=== PATIENT | male | born 1960 | race Caucasian/White ===

== ENCOUNTER 2017-01-29 08:19 | Emergency (ER) | payer BC, OTHER ==
[2017-01-29] MEDS ORDERED: Diphtheria,Pertussis(Acell),Tetanus Vaccine 0.5 ML SDV IM ONE (08:29)
[2017-01-29 08:30] VITALS: BP 149/99
[2017-01-29] MEDS ORDERED: Lidocaine 1% 50 ML MDV INJECT ONE (08:35)
--- NOTE | 2017-01-29 08:35 | EDM.PDOC ---
ED HPI GENERAL MEDICAL PROBLEM - General Chief Complaint: Upper Extremity Injury/Pain Stated Complaint: SMASHED MIDDLE FINGER Time Seen by Provider: 01/29/17 08:25 Source of Information: Reports: Patient History Limitations: Reports: No Limitations - History of Present Illness INITIAL COMMENTS - FREE TEXT/NARRATIVE: The patient was loading some wooden pallets on to his ranger and one of them smashed his left middle finger. The nail is nearly off. He his right handed. He is unsure of his tetanus status. He has no other injuries. Onset: Sudden Duration: Minutes: Location: Reports: Upper Extremity, Left (Middle finger) Quality: Reports: Sharp Severity: Moderate Improves with: Reports: None Worsens with: Reports: None Associated Symptoms: Reports: No Other Symptoms Left Middle Hand Pain Score (Numeric/FACES): 3 - Related Data Allergies Allergy/AdvReac Type Severity Reaction Status Date / Time No Known Allergies Allergy Verified 01/29/17 08:30 Home Meds: Home Meds Cephalexin [Keflex] 500 mg PO Q6HR #28 cap 01/29/17 [Rx] Review of Systems - Review of Systems Review Of Systems: See Below Constitutional: Reports: No Symptoms Eyes: Reports: No Symptoms Ears: Reports: No Symptoms Nose: Reports: No Symptoms Mouth/Throat: Reports: No Symptoms Respiratory: Reports: No Symptoms Cardiovascular: Reports: No Symptoms GI/Abdominal: Reports: No Symptoms Genitourinary: Reports: No Symptoms Musculoskeletal: Reports: Other (Left middle finger injury) ED EXAM, GENERAL - Physical Exam Exam: See Below Exam Limited By: No Limitations General Appearance: Alert, No Apparent Distress Ears: Normal External Exam Nose: Normal Inspection Head: Atraumatic, Normocephalic Neck: Normal Inspection Respiratory/Chest: No Respiratory Distress Extremities: Other (Left middle finger has a crush injury. The nail is nearly off. He has good capillary refill distally and good sensation.) Course - Vital Signs Last Recorded V/S: Last Vital Signs Temp 98.0 F 01/29/17 08:25 Pulse 71 01/29/17 08:25 Resp 13 01/29/17 08:25 BP 149/99 H 01/29/17 08:25 Pulse Ox 97 01/29/17 08:25 - Orders/Labs/Meds Orders: Active Orders 24 hr Category Date Time Status Vaccines to be Administered [RC] PER UNIT ROUTINE Care 01/29/17 08:29 Active Fingers Third Digit Lt F2 [CR] Stat Exams 01/29/17 08:28 Taken Meds: Medications Discontinued Medications Generic Name Dose Route Start Last Admin Trade Name Wes PRN Reason Stop Dose Admin Diphtheria/Tetanus/Acell Pertussis 0.5 ml 01/29/17 08:29 01/29/17 08:39 Adacel IM 01/29/17 08:30 0.5 ml .ONCE ONE Administration Lidocaine HCl 50 ml 01/29/17 08:35 01/29/17 08:49 Xylocaine 1% INJECT 01/29/17 08:36 50 ml ONETIME ONE Administration - Re-Assessments/Exams Free Text/Narrative Re-Assessment/Exam: 01/29/17 08:35 I will get an x-ray and update his tetanus. 01/29/17 09:17 I used 1% lidocaine to do a ring block on his finger and I removed the nail with a 15 blade scalpel after cleaning his finger. He tolerated the procedure well and there were no complications. My nurse dressed the wound and put a splint on it. On the x-ray there were a few bone chips. I will need to get him on some keflex because this is an open fracture. Departure - Departure Time of Disposition: 09:20 Disposition: Home, Self-Care 01 Condition: Good Clinical Impression: Crushing injury of distal finger Qualifiers: Encounter type: initial encounter Qualified Code(s): S67.10XA - Crushing injury of unspecified finger(s), initial encounter Nail avulsion, finger Qualifiers: Encounter type: initial encounter Qualified Code(s): S61.309A - Unspecified open wound of unspecified finger with damage to nail, initial encounter Open fracture of finger of left hand Qualifiers: Encounter type: sequela Finger: middle finger Phalanx: distal Fracture alignment: nondisplaced Qualified Code(s): S62.663S - Nondisplaced fracture of distal phalanx of left middle finger, sequela - Discharge Information Prescriptions: Cephalexin [Keflex] 500 mg PO Q6HR #28 cap Referrals: Ziyad Gardiner MD [Physician] - 1 Week Forms: ED Department Discharge Additional Instructions: Do not change the bandage for 48 hours. After that, soak your finger in warm soapy water and apply antibiotic ointment after. Apply a dressing and wear the splint to protect it. Take keflex 4 times per day for 7 days. Take tylenol or motrin for pain. Please return if you are worse and follow up with Dr Gardiner in 1 week. - My Orders Last 24 Hours: My Active Orders 01/29/17 08:28 Fingers Third Digit Lt F2 [CR] Stat 01/29/17 08:29 Vaccines to be Administered [RC] PER UNIT ROUTINE - Assessment/Plan Last 24 Hours: My Active Orders 01/29/17 08:28 Fingers Third Digit Lt F2 [CR] Stat 01/29/17 08:29 Vaccines to be Administered [RC] PER UNIT ROUTINE
--- NOTE | 2017-01-31 11:08 | CR ---
Left third finger: 4 views of the left third finger were obtained. Soft tissue injury is seen distally. Mild degenerative change is noted within the DIP joint of the second finger with mild joint space narrowing seen within the third finger involving the DIP joint. Joint space narrowing also noted within the second MCP joint. No acute fracture, dislocation or other bony abnormality is seen. Impression: 1. Soft tissue injury. 2. Degenerative change as described above. 3. No acute bony abnormality is identified. Diagnostic code #3
== END 2017-01-29 09:31 | disposition home or self-care (01) ==
LOC: JD.ED 08:19
DX: S62.663A Nondisplaced fracture of distal phalanx of left middle finger, initial encounter for closed fracture (principal); S61.303A Unspecified open wound of left middle finger with damage to nail, initial encounter; Z23 Encounter for immunization; W23.0XXA Caught, crushed, jammed, or pinched between moving objects, initial encounter; Y93.89 Activity, other specified
CPT/HCPCS: 11730; 73140-26-F2; 73140-F2; 90471; 90715; 99283; 99283-25

== ENCOUNTER 2019-08-23 20:00 | Emergency (ER) | payer OTHER ==
[2019-08-23 20:20] VITALS: BP 128/85; PULSE 72
[2019-08-23] MEDS ORDERED: Fluorescein 1 MG Ophth Strip EYERT ONE (21:36)
[2019-08-23] MEDS ORDERED: Proparacaine 0.5% Ophth Soln 15 ML Bottle EYERT ONE (21:37)
[2019-08-23] MEDS ORDERED: Erythromycin Base 0.5% Ophth Oint 1 GM Tube EYERT ONE (21:46)
--- NOTE | 2019-08-23 21:52 | EDM.PDOC ---
ED HPI GENERAL MEDICAL PROBLEM - General Chief Complaint: Eye Problems Stated Complaint: EYE PROBLEM Time Seen by Provider: 08/23/19 21:36 Source of Information: Reports: Patient History Limitations: Reports: No Limitations - History of Present Illness INITIAL COMMENTS - FREE TEXT/NARRATIVE: Patient is a 58-year-old male who presents with complaints of pain and watering to his right eye. States he has a sensation that there is a foreign body in the eye. Earlier he was working outside with grain. He thought he may have got some green into his right eye. He was not able to locate a foreign body, however, the eye continues to be painful with a sensation that he has a foreign body in it. Right Eye Pain Score (Numeric/FACES): 7 - Related Data Allergies Allergy/AdvReac Type Severity Reaction Status Date / Time No Known Allergies Allergy Verified 08/23/19 20:20 Home Meds: Home Meds . [No Known Home Meds] 08/23/19 [History] Past Medical History HEENT History: Reports: Impaired Vision Other HEENT History: wears glasses - Infectious Disease History Infectious Disease History: Reports: Chicken Pox, Mumps - Past Surgical History Neurological Surgical History: Reports: Lumbar Spine Social & Family History - Family History Family Medical History: Noncontributory - Tobacco Use Smoking Status *Q: Never Smoker - Caffeine Use Caffeine Use: Reports: Coffee, Soda - Recreational Drug Use Recreational Drug Use: No ED ROS GENERAL - Review of Systems Review Of Systems: Comprehensive ROS is negative, except as noted in HPI. ED EXAM GENERAL W FULL EYE - Physical Exam Exam: See Below Exam Limited By: No Limitations General Appearance: Alert, WD/WN, No Apparent Distress Eye Exam: Right Eye: Conjunctival Injection, Corneal Abrasion (2mm at to 2' oclock position over the iris. No foreign body present.), Bilateral Eye: PERRL Eyelids: Bilateral: Normal Appearance Conjunctiva & Sclera: Right: Injected Respiratory/Chest: No Respiratory Distress, Lungs Clear, Normal Breath Sounds, No Accessory Muscle Use, Chest Non-Tender Cardiovascular: Normal Peripheral Pulses, Regular Rate, Rhythm, No Edema, No Gallop, No JVD, No Murmur, No Rub Course - Vital Signs Last Recorded V/S: Last Vital Signs Temp 98.3 F 08/23/19 20:17 Pulse 72 08/23/19 20:17 Resp 18 08/23/19 20:17 BP 128/85 08/23/19 20:17 Pulse Ox 90 L 08/23/19 20:17 - Orders/Labs/Meds Meds: Medications Discontinued Medications Generic Name Dose Route Start Last Admin Trade Name Wes PRN Reason Stop Dose Admin Erythromycin 1 gm 08/23/19 21:46 08/23/19 22:04 Erythromycin 0.5% Ophth Oint EYERT 08/23/19 21:47 1 gm ONETIME ONE Administration Fluorescein Sodium 1 mg 08/23/19 21:36 08/23/19 22:05 Ful-Chloé EYERT 08/23/19 21:37 1 mg ONETIME ONE Administration Proparacaine HCl 1 ml 08/23/19 21:37 08/23/19 22:05 Proparacaine 0.5% Ophth Soln EYERT 08/23/19 21:38 1 ml ONETIME ONE Administration - Re-Assessments/Exams Free Text/Narrative Re-Assessment/Exam: 08/23/19 21:51 On exam, no foreign body is visualized within the eye. After proparacaine and fluorescein was applied, Rivera lamp was used to visualize the cornea. There was an approximate 2 mm corneal abrasion at the 2 o'clock position directly over the iris. No foreign bodies were visualized. We will apply erythromycin ointment to the eye. Discharge instructions as documented. Departure - Departure Time of Disposition: 21:52 Disposition: Home, Self-Care 01 Condition: Fair Clinical Impression: Corneal abrasion Qualifiers: Encounter type: initial encounter Laterality: right Qualified Code(s): S05.01XA - Injury of conjunctiva and corneal abrasion without foreign body, right eye, initial encounter - Discharge Information *PRESCRIPTION DRUG MONITORING PROGRAM REVIEWED*: No *COPY OF PRESCRIPTION DRUG MONITORING REPORT IN PATIENT [place]: No Instructions: Corneal Abrasion Referrals: PCP,None [Primary Care Provider] - Forms: ED Department Discharge Additional Instructions: You were seen in the emergency department today for the sensation of a foreign body in your right eye. On exam there is abrasion to your right cornea. Corneal abrasions generally heal very quickly. You likely have significant relief upon waking tomorrow. You did receive erythromycin ointment in the emergency department. I recommend that you apply this into the right eye 4 times daily for the next 2 to 3 days symptoms resolve. It is recommended that the eye stay uncovered, however if the discomfort becomes too extreme you may apply gauze with tape over the eye. You may also use [id number] ibuprofen as needed for discomfort. I would recommend 600 mg every 6 hours. If you should experience any worsening symptoms of concern or fail to improve as expected, please do not hesitate to return to the emergency department. Sepsis Event Note - Evaluation Sepsis Screening Result: No Definite Risk - Focused Exam Vital Signs: Vital Signs Temp Pulse Resp BP Pulse Ox 08/23/19 20:17 98.3 F 72 18 128/85 90 L Date Exam was Performed: 08/23/19 Time Exam was Performed: 22:47
== END 2019-08-23 22:06 | disposition home or self-care (01) ==
LOC: JD.ED 20:00
DX: S05.01XA Injury of conjunctiva and corneal abrasion without foreign body, right eye, initial encounter (principal); X58.XXXA Exposure to other specified factors, initial encounter; Y93.89 Activity, other specified; Y92.89 Other specified places as the place of occurrence of the external cause
CPT/HCPCS: 99283; A9270

== ENCOUNTER 2020-09-11 08:59 | Emergency (ER) | payer OTHER ==
[2020-09-11 09:09] VITALS: BP 178/105; PULSE 58
[2020-09-11] MEDS ORDERED: Lidocaine 1% 10 ML MDV INJECT ONE (09:14)
[2020-09-11] MEDS ORDERED: Bupivacaine 0.5% 10 ML SDV INJECT ONE (09:14)
--- NOTE | 2020-09-11 10:10 | CR ---
Right third and fourth fingers: 4 views centered to the right third and fourth fingers were obtained. Comparison: No previous right finger or hand studies available. Mild joint space narrowing is seen within the MCP joints of the third and fourth fingers. Joint space narrowing also noted within the DIP joints. Small corner fracture is identified within the base of the distal phalanx of the fourth finger. Nondisplaced corner fracture also noted in a similar location within the third finger. No additional fracture or other bony abnormality is appreciated. Soft tissue swelling is noted within the distal fourth finger. Impression: 1. Degenerative change as noted above. 2. Fractures within the corner base of the distal phalanx of the third and fourth fingers. 3. Soft tissue injury within the distal fourth finger. Diagnostic code #3
[2020-09-11] MEDS ORDERED: Cephalexin 500 MG Cap PO ONE (11:13)
--- NOTE | 2020-09-11 11:19 | EDM.PDOC ---
ED HPI GENERAL MEDICAL PROBLEM - General Chief Complaint: Laceration Stated Complaint: R HAND MIDDLE/RING RINGER LAC Time Seen by Provider: 09/11/20 09:04 Source of Information: Reports: Patient, RN Notes Reviewed History Limitations: Reports: No Limitations - History of Present Illness INITIAL COMMENTS - FREE TEXT/NARRATIVE: Patient is a 5-year-old male presenting to the emergency department complaints of crush injury to the distal aspect of his right third and fourth fingers. States he was working on a weight disorder in his fingers got caught in the chain. He is unsure when his last tetanus vaccination was. He has full ROM of both fingers. Left Finger-Middle Pain Score (Numeric/FACES): 8 - Related Data Allergies Allergy/AdvReac Type Severity Reaction Status Date / Time No Known Allergies Allergy Verified 08/23/19 20:20 Home Meds: Home Meds cephALEXin [Keflex] 500 mg PO Q6H #19 cap 09/11/20 [Rx] Past Medical History HEENT History: Reports: Impaired Vision Other HEENT History: wears glasses Gastrointestinal History: Reports: GERD - Infectious Disease History Infectious Disease History: Reports: Chicken Pox, Mumps - Past Surgical History Neurological Surgical History: Reports: Lumbar Spine Other Musculoskeletal Surgeries/Procedures:: back surgery in 2004 Social & Family History - Family History Family Medical History: No Pertinent Family History - Tobacco Use Tobacco Use Status *Q: Former Tobacco User Years of Tobacco use: 5 Used Tobacco, but Quit: Yes Month/Year Tobacco Last Used: 07/1981 - Caffeine Use Caffeine Use: Reports: Coffee, Soda - Alcohol Use Days Per Week of Alcohol Use: 7 Number of Drinks Per Day: 2 Total Drinks Per Week: 14 - Recreational Drug Use Recreational Drug Use: No ED ROS GENERAL - Review of Systems Review Of Systems: Comprehensive ROS is negative, except as noted in HPI. ED EXAM, SKIN/RASH Exam: See Below Exam Limited By: No Limitations General Appearance: Alert, WD/WN, No Apparent Distress Respiratory/Chest: No Respiratory Distress, Lungs Clear, Normal Breath Sounds, No Accessory Muscle Use, Chest Non-Tender Cardiovascular: Normal Peripheral Pulses, Regular Rate, Rhythm, No Edema, No Gallop, No JVD, No Murmur, No Rub Extremities: Other (3.5 cm laceration extending from the ulnar aspect of the right middle finger across the dorsal aspect of the finger directly proximal to the nailbed. No obvious deformity. CMS intact. Avulsion of the tissue overlying the nailbed of the right fourth finger. Subuncal hematoma present.) Neurological: Alert, Oriented, CN II-XII Intact, Normal Cognition, Normal Gait, Normal Reflexes, No Motor/Sensory Deficits Psychiatric: Normal Affect, Normal Mood ED SKIN PROCEDURES - Laceration/Wound Repair Right Dorsal Digit - 3rd (Middle) Appearance: Subcutaneous, Clean Distal NVT: Neuro & Vascular Intact, No Tendon Injury Anesthetic Type: Digital Local Anesthesia - Lidocaine (Xylocaine): 1% Plain Local Anesthesia - Bupivicaine (Marcaine): 0.5% Plain Local Anesthetic Volume: 3cc Skin Prep: Chlorhexidine (Hibiciens), Providone-Iodine (Betadine), Saline, Sterile Drape Exploration/Debridement/Repair: Wound Explored, No Foreign Material Found, Wound Margins Revised, Other ( tissue debrided) Closed with: Sutures Lac/Wound length In cm: 3.5 Suture Size: 4-0 # of Sutures: 8 Suture Type: Nylon Sterile Dressing Applied: Nurse Tetanus Status Addressed: Yes Complications: No Progress/Comments: nail bed realigned and sutured in place. - Additional/Other Procedure(s) Other (Free Text) Procedure(s): nail avulsion of the right 4th finger. Nailbed sutured into place with 3 sutures. Subungal hematoma present. Nail triphination performed. 2 dalton holes created using an 18 G hypodermic needle. Small amount of blood returned. Course - Vital Signs Last Recorded V/S: Last Vital Signs Temp 97.5 F 09/11/20 09:04 Pulse 58 L 09/11/20 09:04 Resp 16 09/11/20 09:04 BP 178/105 H 09/11/20 09:04 Pulse Ox 96 09/11/20 09:04 - Orders/Labs/Meds Meds: Medications Discontinued Medications Generic Name Dose Route Start Last Admin Trade Name Freq PRN Reason Stop Dose Admin Bupivacaine HCl 10 ml 09/11/20 09:14 09/11/20 10:12 Sensorcaine-Mpf 0.5% INJECT 09/11/20 09:15 10 ml ONETIME ONE Administration Cephalexin 500 mg 09/11/20 11:13 09/11/20 11:24 Keflex PO 09/11/20 11:14 500 mg ONETIME ONE Administration Lidocaine HCl 10 ml 09/11/20 09:14 09/11/20 10:12 Xylocaine 1% INJECT 09/11/20 09:15 10 ml ONETIME ONE Administration - Re-Assessments/Exams Free Text/Narrative Re-Assessment/Exam: Patient is a 59 year old male presenting to the ER with c/o injuries to his right 3rd and 4th fingers after having them pinched in a sprocket on his grain sorter. On exam, pt has an avulsion of the nail on the right 4th finger with a subungal hematoma. He also has a large laceration extending from the ulnar aspect of his right middle finger and across that nailbed. There is a moderate amount of nonviable tissue overlying the area. I have ordered xrays of the fingers and will plan for would closure using a digital block to both fingers. Review of his past visits showed that he is UTD on his Tdap. Last dose was in 2017. 09/11/20 11:15 X-ray of the right third and fourth finger show fractures within the corner base of the distal phalanx of the third and fourth fingers. Soft tissue injury within the distal fourth finger. See procedure notes for wound closures. Aluminum fingertip splints have been applied to both fingers. Discharge instructions as documented. Departure - Departure Time of Disposition: 11:17 Disposition: Home, Self-Care 01 Condition: Good Clinical Impression: Laceration, Fracture, finger, multiple sites, Nailbed avulsion - Discharge Information *PRESCRIPTION DRUG MONITORING PROGRAM REVIEWED*: No *COPY OF PRESCRIPTION DRUG MONITORING REPORT IN PATIENT [place]: No Prescriptions: cephALEXin [Keflex] 500 mg PO Q6H #19 cap Instructions: Finger Fracture, Adult, Laceration Care, Adult Referrals: Chaka Lowery MD [Primary Care Provider] - Forms: ED Department Discharge Additional Instructions: You were seen in the emergency department today for a lacerations to your fingers on your right hand. The wounds were cleansed and closed with sutures. These should stay intact for 7-10 days. After that time they may be removed in the clinic by a nurse. Wear the dressing that was applied today for the next 48 hours. After that time you may remove it and wash with normal soap and water twice daily. Do not submerge the wound in water. Keep the wounds clean and dry. If there is any chance they could be contaminated, the wounds should be covered well. Wear the finger tip splints at all times for 3 weeks. After that time for the remaining 3 weeks they should be worn if there is any chance that the finger could be hit. You been prescribed Keflex to prevent infection. Watch for signs of infection including increased redness, swelling, or purulent drainage. If these should occur, you should be seen either in the clinic or in the emergency department as antibiotic treatment may be needed. Return to the ER as needed. Sepsis Event Note (ED) - Evaluation Sepsis Screening Result: No Definite Risk
== END 2020-09-11 11:30 | disposition home or self-care (01) ==
LOC: JD.ED 08:59
DX: S62.632A Displaced fracture of distal phalanx of right middle finger, initial encounter for closed fracture (principal); S62.634A Displaced fracture of distal phalanx of right ring finger, initial encounter for closed fracture; S61.304A Unspecified open wound of right ring finger with damage to nail, initial encounter; Z87.891 Personal history of nicotine dependence; W23.0XXA Caught, crushed, jammed, or pinched between moving objects, initial encounter
CPT/HCPCS: 11740; 11760; 12002; 73140; 99283; A9270; J3490